=== PATIENT | male | born 1985 | race African-American/Black ===

== ENCOUNTER 2016-12-12 02:09 | Emergency (ER) | payer MEDICAID, OTHER ==
[~2016-12-12] VITALS: Ht 188 cm; Wt 100.0 kg
[~2016-12-12 02:09] MED LIST: DILA100C PO; LEXA10TA PO; NICO21T T-DERMAL
[2016-12-12 02:23] VITALS: BP 133/70; PULSE 77; RESP 14; TEMP 98.1; O2SAT 97
[2016-12-12 02:26] VITALS: BP 133/70; PULSE 73; RESP 14; TEMP 98.1; O2SAT 97
--- NOTE | 2016-12-12 02:41 | PD ---
HPI Chief Complaint: Psychiatric Symptoms Time Seen by Provider: 02:41 Travel History International Travel<30 days: No Contact w/Intl Traveler<30days: No Traveled to known affect area: No History of Present Illness HPI 31-year-old male presents to the emergency department under [place] act for psychiatric evaluation. Patient states he isn't having suicidal thoughts. He states he does not have a current plan. States he is bipolar and has been off his medications for a couple of days. Denies any acute medical needs. Denies any illicit drug use. Has no other symptoms to report. 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 HEAD: Normocephalic. Atraumatic EYES: No scleral icterus. No injection or drainage. NECK: Supple, trachea midline. No JVD or lymphadenopathy. CARDIOVASCULAR: Regular rate and rhythm without murmurs, gallops, or rubs. RESPIRATORY: Breath sounds equal bilaterally. No accessory muscle use. GASTROINTESTINAL: Abdomen soft, non-tender, nondistended. MUSCULOSKELETAL: No cyanosis, or edema. BACK: Nontender without obvious deformity. No CVA tenderness. Data Data Last Documented VS Vital Signs Date Time Temp Pulse Resp B/P Pulse Ox O2 Delivery O2 Flow Rate FiO2 12/12/16 02:26 98.1 73 14 133/70 97 Room Air Orders Complete Blood Count With Diff (12/12/16 02:39) Basic Metabolic Panel (Bmp) (12/12/16 02:39) Valproic Acid (Depakene) (12/12/16 02:39) Psych Screen (12/12/16 02:39) Drug Screen, Random Urine (12/12/16 02:39) Alcohol (Ethanol) (12/12/16 02:39) MDM Medical Decision Making Medical Screen Exam Complete: Yes Emergency Medical Condition: Yes Medical Record Reviewed: Yes Differential Diagnosis Mood disorder versus personality disorder versus adjustment reaction disorder Narrative Course 31-year-old male presents to emergency department for psychiatric evaluation. Patient appears well and without distress. Lab work is without acute concern. He is medically cleared psychiatric screening for further evaluation and disposition. Mental health screening discussed with the patient. Psychiatric screen ordered. Diagnosis Primary Impression: Adjustment disorder with depressed mood Condition: Stable Jeanna Cook Dec 12, 2016 02:41
[2016-12-12 03:20] LABS: AUTOMATED NEUTROPHIL # 3.9 TH/MM3 (1.8-7.7); BASOPHIL % 0.3 % (0.0-2.0); EOSINOPHIL # 0.5 TH/MM3 (0-0.4); EOSINOPHIL % 5.8 % (0.0-4.0); HEMO FLAGS DIFF FINAL; LYMPH % 34.9 % (9.0-44.0); MEAN CORPUSCULAR HEMOGLOBIN 27.2 PG (27.0-34.0); MEAN CORPUSCULAR HGB CONC 33.6 % (32.0-36.0); MONO % 13.3 % (0.0-8.0); NEUT % 45.7 % (16.0-70.0); PLATELET COUNT 249 TH/MM3 (150-450); RED CELL DISTRIBUTION WIDTH 13.9 % (11.6-17.2); WHITE BLOOD COUNT 8.6 TH/MM3 (4.0-11.0)
[2016-12-12 03:23] LABS: AMPHETAMINE, URINE NEG (NEG); BARBITURATES, URINE NEG (NEG); COCAINE, URINE NEG (NEG)
[2016-12-12] MEDS ORDERED: TRAZ100T4 PO (03:25)
[2016-12-12] MEDS ORDERED: DEPA500T PO (03:25)
[2016-12-12] MEDS ORDERED: QUET200XR PO (03:25)
[2016-12-12 03:32] LABS: ANION GAP 6 MEQ/L (5-15); BICARBONATE 30.4 MEQ/L (21.0-32.0); BLOOD UREA NITROGEN 11 MG/DL (7-18); CHLORIDE 107 MEQ/L (98-107); GLOMERULAR FILTRATION RATE 119 ML/MIN (>89); POTASSIUM 3.9 MEQ/L (3.5-5.1); SODIUM (NA) 143 MEQ/L (136-145)
[2016-12-12 04:47] VITALS: BP 128/66; PULSE 70; RESP 12; O2SAT 96
[2016-12-12 07:00] VITALS: BP 124/68; PULSE 76; RESP 14; O2SAT 99
[2016-12-12 09:29] VITALS: BP 126/66; PULSE 74; RESP 18; TEMP 98.3; O2SAT 97
[2016-12-12 15:05] VITALS: BP 126/66; PULSE 74; RESP 18; O2SAT 97
== END 2016-12-12 18:50 | disposition home or self-care (01) ==
LOC: NEPA 02:09 → NEPJ 18:50
DX: F43.21 Adjustment disorder with depressed mood (principal)
CPT/HCPCS: 80048; 80164; 80307; 80320; 85025; 99284